=== PATIENT | male | born 1975 | race Caucasian/White ===

== ENCOUNTER 2017-08-21 05:17 | Inpatient (IN) | payer OTHER ==
[2017-08-21] VITALS (12 sets, daily range): BP systolic 135–158; BP diastolic 84–99
[~2017-08-21] VITALS: Ht 188 cm; Wt 117.0 kg
[2017-08-21] MEDS ORDERED: NKM (05:55)
[2017-08-21] MEDS ORDERED: EPINEPHrine 1mg/1ml Amp ONE (06:59)
[2017-08-21] MEDS ORDERED: Vancomycin 1gm inj IVPB ONE (06:59)
[2017-08-21] MEDS ORDERED: Thrombin 5000 units spray kit TOPIC ONE (07:00)
[2017-08-21] MEDS ORDERED: ceFAZolin sod 1 GM in NS 55 ML IVPB ONE (07:00)
[2017-08-21] MEDS ORDERED: Thrombin 5000 units TOPIC ONE ×2 (07:00→07:01)
[2017-08-21] MEDS ORDERED: Gelfoam Absorbable 1gm powder pkt TOPIC ONE (07:01)
[2017-08-21] MEDS ORDERED: Bacitracin 50000 Units Vial ONE (07:01)
[2017-08-21] MEDS ORDERED: Bupivacaine 0.5% Inj 30 ml vial INJ ONE (07:01)
[2017-08-21] MEDS ORDERED: fentaNYL 100 mcg/2 mL IV ONE (07:03)
[2017-08-21] MEDS ORDERED: Zemuron 50mg/5ml Inj IV ONE (07:04)
[2017-08-21] MEDS ORDERED: Propofol 200mg/20ml IV ONE ×2 (07:05→13:36)
[2017-08-21] MEDS ORDERED: Lidocaine 1% MPF 10mg/ml 5ml ONE (07:05)
[2017-08-21] MEDS ORDERED: Ketamine 500mg Inj ONE (07:07)
--- NOTE | 2017-08-21 07:20 | Pre-Procedure Note/Attestation ---
Pre-Procedure Note/Attestation Complete Prior to Procedure Procedure Narrative: acdf c56 and c67 with allograft possible corpectomy and bone marrow aspiration Indications for Procedure Pre-Operative Diagnosis: cervical myeloradiculopathy Attestation I attest that I discussed the nature of the procedure; its benefits; risks and complications; and alternatives (and the risks and benefits of such alternatives ), prior to the procedure, with the patient (or the patient's legal telemarketing representative). I attest that, if there was a reasonable possibility of needing a blood transfusion, the patient (or the patient's legal telemarketing representative) was given the [facility] standardized written summary, pursuant to the Alberto Shaheen Blood Safety Act ([place] Health and Safety Code # 1645, as amended). I attest that I re-evaluated the patient just prior to the surgery and that there has been no change in the patient's H&P, except as documented below: Eric Lunsford MD Aug 21, 2017 07:20
[2017-08-21] MEDS ORDERED: Glycopyrrolate 0.2mg/ml 1ml Vial ONE (07:30)
[2017-08-21] MEDS ORDERED: Morphine Sulfate 4mg/ml Inj IV PRN (07:30)
[2017-08-21] MEDS ORDERED: Naloxone 0.4mg/ml Inj IVP PRN (07:30)
[2017-08-21] MEDS ORDERED: Propofol 1,000mg/ 100ml btl IV ONE (07:30)
[2017-08-21] MEDS ORDERED: HYDROcodone/Acetamin 7.5/325 tab ORAL PRN ×2 (07:30)
[2017-08-21] MEDS ORDERED: LR 1000ml ONE (07:30)
[2017-08-21] MEDS ORDERED: NS Irrig 1000ml ONE (07:30)
[2017-08-21] MEDS ORDERED: Neostigmine 1mg/ml 10ml Inj ONE (07:30)
[2017-08-21] MEDS ORDERED: Sterile Water Irrig 1000ml IRRIG ONE (07:30)
[2017-08-21] MEDS ORDERED: Morphine Sulfate 2mg/ml Inj IV PRN (07:30)
[2017-08-21] MEDS ORDERED: NS Irrig 1000ml IRRIG ONE ×2 (08:20→08:46)
[2017-08-21] MEDS ORDERED: Phenylephrine 10mg/ml Vial ONE (08:32)
[2017-08-21] MEDS ORDERED: Dexamethasone 4mg/ml vial ONE (08:36)
--- NOTE | 2017-08-21 08:54 | Anethesia Preoperative Eval ---
Anesthesia Pre-op PMH/ROS General Date of Evaluation: Aug 21, 2017 Time of Evaluation: 07:15 Anesthesiologist: ASA Score: ASA 2 Mallampati Score Class I : Soft palate, uvula, fauces, pillars visible Class II: Soft palate, uvula, fauces visible Class III: Soft palate, base of uvula visible Class IV: Only hard plate visible Mallampati Classification: Class II Surgeon: marsha Diagnosis: neck jimbo Surgical Procedure: C5,6C6,7 ACDF, poss vertibrectomy, bone marrow asp, allograft Anesthesia History: none Allergies: Coded Allergies: No Known Allergies (Unverified , 08/17/17) Medications: see eMAR Past Medical History Cardiovascular: Denies: HTN, CAD, AL, valve dz, arrhythmia, other Pulmonary: Denies: asthma, COPD, JASSON, other Gastrointestinal/Genitourinary: Reports: other - h/o kidney injury in 2013- resloved; Denies: GERD, CRI, ESRD Neurologic/Psychiatric: Denies: dementia, CVA, depression/anxiety, TIA, other Endocrine: Denies: DM, hypothyroidism, steroids, other HEENT: Denies: cataract (L), cataract (R), glaucoma, [place]VI (L), [place]VI (R), other Hematology/Immune: Denies: anemia, DVT, bleeding disorder, other Musculoskeletal/Integumentary: Denies: OA, RA, DJD, DDD, edema, other PSxH Narrative: left wrist, right shoulder Anesthesia Pre-op Phys. Exam Physician Exam Last Vital Signs Date Time Temp Pulse Resp B/P (MAP) Pulse Ox O2 Delivery O2 Flow Rate FiO2 08/21/17 06:12 97.7 69 20 141/90 98 Room Air 97.7 Constitutional: NAD Cardiovascular: RRR Respiratory: CTA Gastrointestinal: S/NT/ND Airway Exam Mallampati Score: Class II MO: full ROM: full Teeth: intact Dentures: no upper, no lower Anesthesia Pre-op A/P Risk Assessment & Plan Assessment: asa 2 Plan: ETGA Status Change Before Surgery: No Pre-Antibiotics Drug: ancef 2 grams Given Within 1 Hr of Incision: No Time Given: 07:50 Tiffany Irvin M.D. Aug 21, 2017 08:54
[2017-08-21] MEDS ORDERED: LR 1000ml 1,000 ML IVLG SCH (08:55)
[2017-08-21] MEDS ORDERED: fentaNYL 100 mcg/2 mL IV PRN (09:00)
[2017-08-21] MEDS ORDERED: Hydromorphone 0.5mg/0.5ml inj IVP PRN (09:00)
[2017-08-21] MEDS ORDERED: Labetalol 5mg/ml 20ml vial IV PRN (09:00)
[2017-08-21] MEDS ORDERED: Midazolam 2mg/2ml Inj IVP PRN (09:00)
[2017-08-21] MEDS ORDERED: DiphenhydrAMINE 50mg/ml Inj IVP PRN (09:00)
--- NOTE | 2017-08-21 13:01 | Immediate Post-Op Evaluation ---
Immediate Post-Op Evalulation Immediate Post-Op Evalulation Procedure: C5,6C6,7 ACDF Date of Evaluation: Aug 21, 2017 Time of Evaluation: 12:45 IV Fluids: LR 950ml Blood Products: 0 Estimated Blood Loss: 30ml Urinary Output: 550ml Blood Pressure Systolic: 152 Blood Pressure Diastolic: 91 Pulse Rate: 116 Respiratory Rate: 16 O2 Sat by Pulse Oximetry: 98 Temperature (Fahrenheit): 97.8 Pain Score (1-10): 0 Nausea: No Vomiting: No Complications none Patient Status: awake, patent, none Hydration Status: adequate Drug: ancef 2 grams Given Within 1 Hr of Incision: No Time Given: 07:50 Tiffany Irvin M.D. Aug 21, 2017 13:01
[2017-08-21] MEDS ORDERED: ceFAZolin sod 1 GM in D5W 55 ML IV SCH (14:00)
[2017-08-21] MEDS: D5 1/2NS 1,000 ML IV SCH ×2 (15:04→23:35)
--- NOTE | 2017-08-21 15:09 | Diagnostic Imaging Report ---
Indication: Pain, intraoperative imaging, right neck and right upper extremity pain Technique: Intraoperative images Comparison: none Findings: And initial image demonstrates surgical needle anterior to the C4-5 disc and a second anterior to the C6-7 disc. Subsequent images demonstrate surgical tool at the anterior aspect of the C5-6 disc. Subsequent images demonstrate anterior fusion hardware and disc spacers bridging C5, C6, and C7 Impression: Intraoperative imaging, as described
[2017-08-21] MEDS ORDERED: LORazepam Inj 2mg/ml 1ml IV PRN (15:30)
[2017-08-21] MEDS: ceFAZolin sod 1 GM in D5W 110 ML IV SCH ×2 (16:35→23:36)
[2017-08-21] MEDS: Docusate 100mg cap ORAL SCH (18:01)
[2017-08-21] MEDS: Norco 5mg/325mg tab ORAL PRN ×2 (18:01→23:44)
[2017-08-21] MEDS: Morphine Sulfate 4mg/ml Inj IV PRN (21:12)
[2017-08-22] VITALS: BP 132/85
[2017-08-22 04:00] VITALS: BP 122/81
[2017-08-22] MEDS: Morphine Sulfate 4mg/ml Inj IV PRN ×3 (04:20→14:38)
[2017-08-22] MEDS: Norco 5mg/325mg tab ORAL PRN (06:28)
[2017-08-22 08:00] VITALS: BP 147/89
[2017-08-22] MEDS: ceFAZolin sod 1 GM in D5W 110 ML IV SCH (08:28)
[2017-08-22] MEDS: Docusate 100mg cap ORAL SCH (09:00)
[2017-08-22] MEDS: D5 1/2NS 1,000 ML IV SCH (11:07)
--- NOTE | 2017-08-22 11:54 | General Progress Note ---
Progress Note Progress Note doing well no arm pain or paresthesias mild neck pain and pain with swallowing a and o times 3 inc cdi on hip and neck 5/5 motor in the ue and the le lt intact calves soft and nt a: doing well post o p p: oob/ pt [place] dc void check dc today follow up in the office Eric Lunsford MD Aug 22, 2017 11:54
[2017-08-22 12:00] VITALS: BP 147/88
[2017-08-22 13:52] VITALS: BP 138/76
--- NOTE | 2017-08-22 13:52 | 48 Hour Post Anesthesia Eval ---
Post Anesthesia Evaluation Procedure: C5,6C6,7 ACDF Date of Evaluation: Aug 22, 2017 Time of Evaluation: 13:51 Blood Pressure Systolic: 138 0: 76 Pulse Rate: 72 Respiratory Rate: 20 Temperature (Fahrenheit): 97.6 O2 Sat by Pulse Oximetry: 98 Airway: patent Nausea: No Vomiting: No Pain Intensity: 3 Hydration Status: adequate Cardiopulmonary Status: stable Mental Status/LOC: patient returned to baseline Follow-up Care/Observations: n/a Post-Anesthesia Complications: none Follow-up care needed: ready to discharge Kwasi Santana MD Aug 22, 2017 13:52
[2017-08-22] MEDS ORDERED: NORCO 5-325 TA1 EACH ORAL (15:03)
[2017-08-22] MEDS ORDERED: SOMA350 MG PO (15:05)
--- NOTE | 2017-08-22 22:30 | Operative Note - Dictated ---
DATE OF OPERATION: 08/21/2017 PREOPERATIVE DIAGNOSIS: C5-C6 and C6-C7 disc protrusions with extrusion, spinal cord compression with stenosis, and myeloradiculopathy. POSTOPERATIVE DIAGNOSIS: C5-C6 and C6-C7 disc protrusions with extrusion, spinal cord compression with stenosis, and myeloradiculopathy.. PROCEDURE PERFORMED: 1. Anterior cervical diskectomy and interbody arthrodesis at C5-C6 and C6-C7. 2. Placement of PEEK interbody device at C5-C6 and C6-C7 with allograft, autograft, and bone marrow aspirate concentrate. 3. Anterior cervical instrumentation C5 through C7. 4. Acquisition of bone marrow aspirate from the right anterior iliac crest. 5. Intraoperative use of microscope. 6. Intraoperative use of fluoroscopy. SURGEON: Eric Lunsford M.D. ETIQUETTE COACH: Renea Go M.D. ANESTHESIA: General endotracheal anesthesia. ANESTHESIOLOGIST: Dr. Irvin. EBL: Less than 50 mL. IV ANTIBIOTICS: 2 g of Ancef. COMPLICATIONS: None. BACKGROUND INDICATIONS: This is a pleasant gentleman, who has failed nonoperative treatments and continued to have axial neck pain and myeloradiculopathy due to failed nonoperative treatments and option for above surgery was given. Risks, alternatives, and benefits were discussed with the patient at length. Risks include, but are not limited to, anesthesia complications including , medical complications including liver, kidney, cardiopulmonary deficits, bleeding, infection, dysphonia, dysphagia, hematoma of the neck, nerve root injury, paralysis, spinal cord injury, CSF leak, dural tear, fracture of the hardware, loosening of the hardware, need for revision, decompression, and fusion at adjacent levels, swallowing difficulties, esophageal injury, tracheal injury, recurrent laryngeal nerve injury, as well as other complications including compartment syndrome. The patient understood and wished to proceed. Written and verbal consent was given. No guarantees were given. OPERATIVE FINDINGS: Herniated nucleus pulposus at C5-C6 and C6-C7 with spinal cord compression, central stenosis, and foraminal stenosis. DESCRIPTION OF OPERATION: The patient was brought into the operating room, supine on a stretcher. Appropriate IV lines were placed by the anesthesiologist. A 2 g of Ancef was administered 30 minutes before the incision. The patient was induced and intubated without complication. The patient was positioned onto the operating room table. The neck was placed into neutral alignment. The arms were tucked by the side. All bony prominences were well padded as well as the four extremities. SSEP, neural monitoring lead, and MEP leads were also placed and remained stable throughout the case. Preoperative fluoroscopy revealed the planned incision to be over the C5-C6 and C6-C7 Interbody spaces. Fluoroscopy showed the neck to be in adequate alignment. The neck was prepped and draped in usual sterile fashion. An incision was carried out over the medial border of the sternocleidomastoid. Hemostasis was achieved with bipolar cautery. The platysma was incised in line with the skin incision. Blunt dissection was carried out in the interval between the strap muscles and the sternocleidomastoid. Superficial cervical fascia was dissected caudally as well cephalad. Carotid pulses palpated and was found to be well lateral to the field of dissection. Deep cervical fascia was encountered. Once the deep cervical fascia was found, blunt dissection was carried out with [place] to find the prevertebral space. The longus colli was found on both sides of the spine. The longus coli was subperiosteally dissected off of the spine. At this point, retractors were set into place and spinal needle was used and via lateral fluoroscopy, the C5-C6 and C6-C7 interspaces were positively identified. All this was done with the intraoperatively sterilely draped microscope. At this point, attention was first diverted to the C6-C7 interspace. There was disc height collapse at C6-C7 and a #15 scalpel was used to incise the anterior annulus and with straight and curved curette, a diskectomy was begun. Endplate cartilage was removed. Endplate bone was preserved and at this point, a disk space Distractor was set into place and with a high-speed drill, the posterior aspect of the vertebral bodies of C5 and C6 were drilled away and a partial vertebrectomy of C6 and C7 was done for a complete decompression of the spinal canal. At this point, there was a significant amount of adhesions and disc material, which were carefully removed. Subsequently, the posterior longitudinal ligament was found and with a #2 Microsect curette, the PLL was gently incised and a very large disc herniation was found centrally and right paracentral causing severe compression of the spinal cord and severe spinal stenosis. The disc herniation was gently removed with #1 and #2 Kerrison punches and parts of the disc were adhered to the dura and carefully, the adhesions were removed and the disk herniation was removed. There was a portion of the disk herniation at the very right lateral edge of the dura, which was significantly adhered to the dura and at this point, the common dural sac was free, the spinal cord was free, and the neural elements were free, and a decision was made to leave that small piece of calcified ligament adhered to the dura in a floating technique as it was more risky to remove it than the potential benefit that would entail removing it. The foramina was completely patent by the end of the decompression on the right side at C6-C7 and Valsalva was done and there was no CSF leak. Again, a partial vertebrectomy of C6 and C7 was done and disc material extended caudally as well as cephalad to the disk space at C6-C7 and all loose disk material was removed. Now, attention was diverted to the C5-C6 level. Retractors were moved to that level and with a #15 blade, the anterior anulus was incised and with straight curved curette, disc material was removed . Endplate cartilage was removed. Endplate was well preserved . Disc space distraction was placed. SSEP and MEP remained stable. EMG was silent. Drilling was done to the level of the posterior longitudinal ligament and at this point, the ligament was incised with a #2 Microsect curette. A complete decompression of the spinal canal and lateral recess foramina entailed. There was a disc herniation with compression of the spinal cord and stenosis. Foramina were also decompressed. Valsalva was done at 40 mmHg. There was no CSF leak. At this point, attention was diverted to the instrumentation. Previously, the right anterior iliac crest was prepped and draped and with a Jamshidi needle, 30 mL of bone marrow was aspirated and sent down and was concentrated for later placement into the interbody space at C5-C6 and C6-C7. This was done before the incision in the neck. Now, attention was diverted to the trials. Trials were placed at C5-C6 and C6-C7 and the following implant from the spinal element system were placed along with Willow allograft, local autograft, and bone marrow aspirate concentrate. At C6-C7, an 8 mm in height x 16 x 13 mm PEEK interbody device with 7 degrees of lordosis was placed. At C5-C6, a 7 mm in height 16 mm x 13 mm 7 degree lordotic PEEK interbody device was also placed again packed with Willow putty local autograft and bone marrow aspirate concentrate. Once this was completed, AP and lateral fluoroscopy was done. All instrumentation was in good position. Now, a [place] plate measuring 34 mm was placed and was bent into a lordotic shape and fixed to the anterior surface of C5, C6, and C7 bones by six 16 mm self-drilling screws, which had excellent purchase and sat below the locking mechanism of the plate well. AP and lateral fluoroscopy revealed all instrumentation to be in good position. Before placement of any instrumentation, the disk spaces were copiously irrigated with triple antibiotic solution and now, attention was diverted to closure. Hemostasis was achieved with Gelfoam, thrombin, and bipolar cautery and attention was diverted to closure. The platysma was closed with 2-0 Vicryl sutures. The subcuticular layer was closed with 3-0 Vicryl sutures. The skin was closed with Dermabond. Sterile dressing was also placed on the right anterior iliac crest. Telfa and tape was placed over the anterior neck. The patient was extubated and taken to the recovery room in stable condition. He was found to be neurovascularly intact and was admitted to the hospital for monitoring. Eric Lunsford M.D. DR: TWYLA JOB#: [id number] CC: LATOSHA
--- NOTE | 2017-08-23 11:23 | Discharge Summary ---
Discharge Summary Hospital Course Date of Admission Aug 21, 2017 at 05:17 Date of Discharge Aug 22, 2017 at 16:00 Admitting Diagnosis Neck pain with : C5-C6 and C6-C7 disc protrusions with extrusion, spinal cord compression with stenosis, and myeloradiculopathy.. Reason for Hospitalization: Elective surgery HPI Nghia Ludwig is a 42 year old male who was admitted on Aug 21, 2017 at 05:17 for Neck Pain due to C5-C6 and C6-C7 disc protrusions with extrusion, spinal cord compression with stenosis, and myeloradiculopathy. Patient was admitted for elective surgery Procedures s/p 08/21/[address]unsford 1. Anterior cervical diskectomy and interbody arthrodesis at C5-C6 and C6-C7. 2. Placement of PEEK interbody device at C5-C6 and C6-C7 with allograft, autograft, and bone marrow aspirate concentrate. 3. Anterior cervical instrumentation C5 through C7. 4. Acquisition of bone marrow aspirate from the right anterior iliac crest. 5. Intraoperative use of microscope. 6. Intraoperative use of fluoroscopy. Hospital Course s/p surgery course of recovery uneventful neurovascularly intact pain management was addressed, pain was controlled dressing clean dry and intact out of bed as tolerated with PT, able to ambulate safe Christine catheter discontinued voided freely initially IV fluids, antiemetic on board as needed tolerated soft diet stable for discharge home discharge instruction provided scripts provided outpatient follow-up with surgeon as advised FINAL DIAGNOSIS: 1. C5-C6 and C6-C7 disc protrusions with extrusion 2. Spinal cord compression with stenosis 3. Cervical myeloradiculopathy 4. s/p C5-6, C6-7 ACDF Discharge Medications Continued Medications: Carisoprodol* (Soma*) 350 Mg Tablet 350 MG PO TID for spasm, #30 TAB (This prescription has been renewed) Hydrocodone Bit/Acetaminophen 5-325* ([place] 5-325*) 1 Each Tablet 1 TAB ORAL Q4H PRN for For Pain, #40 TAB 0 Refills (This prescription has been renewed) Discharge Condition Upon Discharge: stable Discharge Disposition Patient was discharged to Home () Discharge Instructions Discharge Instructions Special Instructions I have been assigned to complete a D/C Summary on this account. I was not involved in the patient management Marika Palacios NP Aug 23, 2017 11:23
== END 2017-08-22 16:00 | disposition home or self-care (01) | DRG 473 ==
LOC: SDSOVERFLO 05:17 → 3E 14:39
PROC: 0RT30ZZ Resection of Cervical Vertebral Disc, Open Approach (ICD-10-PCS; principal; 2017-08-21 07:30)
PROC: 07DR3ZZ Extraction of Iliac Bone Marrow, Percutaneous Approach (ICD-10-PCS; principal; 2017-08-21 07:30)
PROC: 4A11X4G Monitoring of Peripheral Nervous Electrical Activity, Intraoperative, External Approach (ICD-10-PCS; principal; 2017-08-21 07:30)
PROC: 0RG20A0 Fusion of 2 or more Cervical Vertebral Joints with Interbody Fusion Device, Anterior Approach, Anterior Column, Open Approach (ICD-10-PCS; principal; 2017-08-21 07:30)
DX: M50.122 Cervical disc disorder at C5-C6 level with radiculopathy (principal); E66.9 Obesity, unspecified; Z68.33 Body mass index [BMI] 33.0-33.9, adult; M48.02 Spinal stenosis, cervical region
CPT/HCPCS: 36415; 72040; 76001; 86850; 86900; 86901; 87081; 94003; 94150; 94760; J2370; J2405; J2710